=== PATIENT | male | born 1990 | race Caucasian/White ===

== ENCOUNTER 2025-01-03 21:15 | Emergency (ER) | payer MEDICAID ==
[~2025-01-03] VITALS: Ht 162.6 cm; Wt 100.0 kg
[2025-01-03 21:28] VITALS: O2SAT 99
[2025-01-04 05:24] VITALS: BP 106/63; PULSE 77; RESP 18; TEMP 37.2; O2SAT 99
== END 2025-01-04 05:28 | disposition home or self-care (01) ==
LOC: ER 21:15
DX: S31.139A Puncture wound of abdominal wall without foreign body, unspecified quadrant without penetration into peritoneal cavity, initial encounter (principal); X58.XXXA Exposure to other specified factors, initial encounter; Y93.89 Activity, other specified; Y92.89 Other specified places as the place of occurrence of the external cause; Y99.8 Other external cause status
CPT/HCPCS: 74021; 99285